=== PATIENT | female | born 1995 | race Caucasian/White ===

== ENCOUNTER 2016-12-27 22:28 | Inpatient (IN) | payer OTHER ==
--- NOTE | ~2016-12-27 | PN ---
Unit #: [id number] #: [id number] Patient: PRAFUL ANDREWS [id number] [facility] [address] [place] [address] [id number] I MR#: [id number] NAME: PRAFUL ANDREWS. ROOM: P209 Age: 21 Sex: F Admission Date: 12/27/2016 : 1995 Attending Physician: Flavio Em M.D. Admitting Physician: Flavio Em M.D. Primary Care Physician: Primary Care Physician Jackie LEMUS PROGRESS NOTES DATE OF SERVICE: 12/29/2016 DISCUSSION Ms. Praful Andrews is a 21-year-old female, seen on 12/29/2016. The patient interviewed, chart reviewed, and obtained information from nursing staff. The patient was compliant and cooperative. Mood; sad, dysphoric, and withdrawn. Flat affect, guarded. The patient tolerating medication fairly well, but still seclusive and isolative. REVIEW OF SYSTEMS Complete review of systems unremarkable. MENTAL STATUS EXAMINATION General appearance, the patient dressed casually. Attention span and concentration, fair. Oriented in place and person. Mood and affect, sad and dysphoric. Speech, monotone. Thought process, concrete. The patient denied any thoughts of harming self or others or any psychotic symptom. Recent and remote memory, poor. Insight and judgment, poor. DIAGNOSES Mood disorder, not otherwise specified; opioid use disorder, severe; and cannabis abuse disorder, moderate. ASSESSMENT AND PLAN Advised to continue with current medication and therapeutic protocol. We will monitor response to medication and make further adjustment of medication. Dictated by... Neetu Michel/evi TD: 12/29/2016 19:03 JOB #: [id number] Unit #: [id number] #: [id number] Patient: PRAFUL ANDREWS [facility] PROGRESS NOTES X Flavio Em MD PROGRESS NOTE
--- NOTE | ~2016-12-27 | HP ---
Unit #: [id number] #: [id number] Patient: PRAFUL CUMMINS [id number] [place] [address] [id number] MR#: [id number] NAME: PRAFUL CUMMINS. ROOM: P209 Age: 21 Sex: F Admission Date: 12/27/2016 : 1995 Attending Physician: Flavio Em M.D. Admitting Physician: Flavio Em M.D. Primary Care Physician: Primary Care Physician No HISTORY AND PHYSICAL HISTORY OF PRESENT ILLNESS Praful is a 21 year old admitted to [address] [place] [address] because of her IV drug use. She shoots heroin. PAST MEDICAL HISTORY Long history of opioid abuse to include IV heroin. PAST SURGICAL HISTORY Nothing reported. ALLERGIES No known drug allergies. SOCIAL HISTORY Smokes one pack per day. Denies alcohol. Admits to long history of opioid abuse to include IV heroin. FAMILY HISTORY Medically noncontributory. REVIEW OF SYSTEMS CONSTITUTIONAL: No fever or chills. HEENT: Denies any sore throat, ear pain or runny nose. CARDIOVASCULAR: Denies chest pain, irregular heart rhythm or palpitations. CHEST: Denies shortness of breath or cough. No hemoptysis. GASTROINTESTINAL: Denies nausea, vomiting, diarrhea or chronic constipation. ENDOCRINE: Denies history of increased thirst or urination. No recent significant weight loss or gain. GENITOURINARY: Denies dysuria, frequency, or hematuria. SKIN: Denies any rashes. HEMATOLOGIC: Denies history of increased bleeding or bruising. MUSCULOSKELETAL: Denies any hot, swollen joints. No generalized muscle pain. NEUROLOGIC: Denies problems with vision or speech. No frequent, severe headaches. No numbness, tingling or weakness in any extremities. Denies loss of bladder or bowel control. CURRENT MEDICATIONS 1. Detox protocol. 2. Celexa 20 mg q. day. PHYSICAL EXAMINATION Unit #: [id number] #: [id number] Patient: PRAFUL CUMMINS GENERAL: Alert, well nourished. No apparent distress. VITAL SIGNS: Blood pressure 100/60, heart rate 80, respirations 16, and temperature 98.6. WEIGHT: 144. HEIGHT: 5 feet 8 inches. SKIN: Warm and dry without rash or lesion. HEENT: Normocephalic. TMs not viewed. Oral and nasal passages clear. Conjunctivae clear. PERRLA. EOMs intact. NECK: Supple without lymphadenopathy or thyromegaly. HEART: Regular rate and rhythm without murmur. LUNGS: Clear. ABDOMEN: Soft, nontender. : Not done. EXTREMITIES: No evidence of cyanosis, clubbing or edema. Moves all without focal deficit. NEUROLOGICAL: Grossly within normal limits. Cranial Nerves: II: Visual katz are intact. III, IV AND : Extraocular movements are intact. Pupils are equal, round and reactive to light. V: Facial sensation is grossly normal. VII: Facial movements and expression are normal. VIII: Auditory acuity grossly intact. IX, X: Uvula is midline. Phonation is normal. XI: Patient shrugs shoulders and turns head normally. XII: Tongue protrudes in the midline. Sensory and Motor Function: Sensory and motor sensation is grossly normal. Motor: moves all extremities well. Coordination: Gait is normal. Deep Tendon Reflexes: Intact. IMPRESSION Psychiatric admission. RECOMMENDATIONS PSYCHIATRIC: Per psychiatrist. MEDICAL: I see no contraindication to participate in this facility's activities. MEDICAL PROGNOSIS Good. MEDICAL CONDITION Stable. Dictated by... Monica Rojas PDereckALeisa. for Neetu Sharif/albina TD: 12/29/2016 12:24 JOB #: [id number] Unit #: [id number] #: [id number] Patient: PRAFUL CUMMINS HISTORY AND PHYSICAL X Monica Rojas X HISTORY AND PHYSICAL
--- NOTE | ~2016-12-27 | PN ---
Unit #: [id number] #: [id number] Patient: PRAFUL ANDREWS [id number] [facility] [address] [place] [address] [id number] MR#: [id number] NAME: PRAFUL ANDREWS. ROOM: P209 Age: 21 Sex: F Admission Date: 12/27/2016 : 1995 Attending Physician: Flaivo Em M.D. Admitting Physician: Flavio Em M.D. Primary Care Physician: Primary Care Physician Jackie CANCHOLA NOTES DATE OF SERVICE: 12/28/2016 DISCUSSION Ms. Praful Andrews is a 21-year-old female, seen on 12/28/2009. The patient interviewed, chart reviewed, and obtained information from nursing staff. The patient continues to report feeling sad, depressed, withdrawn, flat affect. DIAGNOSTIC STUDIES LABORATORY RESULTS: The patient's urine drug screen showed positive for marijuana. REVIEW OF SYSTEMS Complete review of systems unremarkable. MENTAL STATUS EXAMINATION General appearance, the patient dressed casually. Attention span and concentration, fair. Oriented in time, place, and person. Mood and affect were sad and dysphoric. Speech, monotone. Thought process, concrete. The patient denied any thoughts of harming self or others or any psychotic symptom but sad, depressed withdrawn. Recent and remote memory, poor. Insight and judgment, poor. DIAGNOSES 1. Opioid use disorder, severe. 2. Mood disorder, not otherwise specified. 3. Cannabis abuse. ASSESSMENT AND PLAN Advised to continue with the inpatient programing and start the patient on Celexa 20 mg daily. If needed, consider further adjustment of medication. Dictated by... Neetu Michel/evi TD: 12/29/2016 06:38 JOB #: [id number] Unit #: [id number] #: [id number] Patient: PRAFUL ANDREWS [facility] PROGRESS NOTES X Flavio Em MD PROGRESS NOTE
--- NOTE | ~2016-12-27 | DS ---
Unit #: [id number] #: [id number] Patient: SALUD CUMMINS [id number] [facility] [address] [place] [address] [id number] MR#: [id number] NAME: SALUD CUMMINS. ROOM: [facility] Age: 21 Sex: F Admission Date: 12/27/2016 : 1995 Discharge Date: 12/31/2016 Attending Physician: Flavio Em M.D. Primary Care Physician: Primary Care Physician No DISCHARGE SUMMARY REASON FOR ADMISSION Detox. DIAGNOSTIC STUDIES LABORATORY RESULTS: Urine drug screen positive for marijuana. HOSPITAL COURSE The patient was admitted to inpatient unit on 12/27/2016 and discharged on 12/31/2016. The patient was treated on the inpatient unit with group therapy, individual therapy, medication management, detox protocol, and detox monitoring. The patient responded well with the above modalities of treatment and following medication. Subsequently, the patient was discharged with a plan to follow up in outpatient clinic. DISCHARGE MEDICATIONS Desyrel 100 mg at bedtime for sleep, Celexa 20 mg daily for depression, Requip 1 mg b.i.d. for restless legs syndrome. DISCHARGE DIAGNOSES Psychiatric: 1. Mood disorder, not otherwise specified, F32.9. 2. Opioid use disorder, severe, F11.20. 3. Cannabis abuse, moderate, F12.20. Secondary diagnosis: Deferred. Medical diagnosis: None. Stressors: Psychosocial stressors. DISCHARGE INSTRUCTIONS The patient to follow up in outpatient clinic as per social group worker. CONDITION ON DISCHARGE The patient was pleasant and cooperative. Denied any psychotic symptom or any suicidal ideation. PROGNOSIS Guarded. DIET AND ACTIVITY As tolerated. Unit #: [id number] #: [id number] Patient: SALUD CUMMINS Dictated by... Neetu MichelC/evi TD: 01/01/2017 08:05 JOB #: [id number] DISCHARGE SUMMARY Page 1 of 1 X Flavio Em MD X DISCHARGE SUMMARY
--- NOTE | ~2016-12-27 | A ---
[facility] Nutrition Therapy DATE: 12/28/16 Patient: SALUD CUMMINS Physician: ENID Address: [address] [place] [address] Room/Bed: [address], Zip: [place] [address] Admit Date: 12/27/16 Date of : [birth year] Height: 5 8 Weight: [phone] NUTRITIONAL ASSESSMENT: REASON: NUTRITIONAL RISK POINT - UNINTENTIONAL WEIGHT LOSS PATIENT ADMITTED FOR HEROIN DETOX, SI PMH: ASTHMA Anthropometrics: HT: 5'8", WT: 144#, BMI: 21.9, %IBW: 103 Labs: NO LABS AVAILABLE Meds: DETOX PROTOCOL Assessment: CHART REVIEWED, EVENTS NOTED. PATIENT IS A 21 Y/O FEMALE ADMITTED FOR HEROIN DETOX AND SI. PATIENT IS CURRENTLY UNEMPLOYED, SMOKES 1 PPD, HAS HAD DAILY HEROIN USE FOR LAST 3 YEARS AND DAILY MARIJUANA USE FOR LAST 7 YEARS. PATIENT STATED HER APPETITE FLUCTUATES WITH DRUG USE AND SHE'S LOST 15# OVER LAST 2-3 MONTHS. WEIGHT HX PER [employer] SHOWS A WEIGHT OF 145# 3 YEARS AGO AND A HX OF FLUCTUATIONS BETWEEN 140-160#. PATIENT HAS A HX OF INPT/OUTPT PSYCH TREATMENT. THIS RD SUSPECTS WEIGHT AND APPETITE WILL STABILIZE AND POSSIBLY INCREASE FOLLOWING DETOX. PATIENT'S BMI IS WITHIN A HEALTHY RANGE OF 19-25 AND SHE IS 103% OF HER IBW. PATIENT IS ON A REGULAR DIET, AND THERE ARE NO SKIN OR GI ISSUES NOTED ATT. Dx: INADEQUATE NUTRIENT INTAKE R/T CURRENT CONDITION, DETOX AEB SELF-REPORTED WEIGHT LOSS, NUTRITIONAL RISK POINT Intervention: 1. REGULAR DIET, 2. MEDS PER MD, 3. DETOX, 4. PSYCH Monitoring, Evaluation and Goals: 1. ADEQUATE PO INTAKES >50% OF MEALS 2. PREVENT, CORRECT MICRO/MACRO NUTRIENT DEFICIENCIES MONITOR: WEIGHTS, LABS, PO/FLUID INTAKES Recommendations: 1. CONTINUE REGULAR DIET TOLERATED 2. ENCOURAGE ADEQUATE PO AND FLUID INTAKES 3. IF PO INTAKES FALL BELOW 50% OF MEALS PLEASE ORDER ENSURE BID TO PROMOTE ADEQUTAE KCAL AND PROTEIN INTAKES [facility] Therapy DATE: 12/28/16 Patient: SALUD CUMMINS Physician: SANDRA Address: [address] [place] [address] Room/Bed: [address], Zip: [place] [address] Admit Date: 12/27/16 Date of : [birth year] Height: 5 8 Weight: [phone] TO F/U PER PROTOCOL AND PRN R/T PATIENT MILDLY COMPROMISED Respectfully, DAYDAY [facility], RD, LD [facility] cc: client file
--- NOTE | ~2016-12-27 | PA ---
Unit #: [id number] #: [id number] Patient: SALUD CUMMINS [id number] [facility] [address] [place] [address] [id number] I MR#: [id number] NAME: SALUD CUMMINS. ROOM: P209 Age: 21 Sex: F Admission Date: 12/27/2016 : 1995 Date of Assessment: 12/27/2016 Attending Physician: Flavio Em M.D. Admitting Physician: Flavio Em M.D. Primary Care Physician: Primary Care Physician No PSYCHIATRIC ASSESSMENT INFORMANTS The patient reliability, fair informant and chart reliability, good. CHIEF COMPLAINT AND HISTORY OF PRESENT ILLNESS Ms. Basilio is a 21-year-old female, seen on . The patient presented with suicidal ideation, feeling sad, and depressed. The patient has a history of previous treatment inpatient at [facility] [place] for suicidal ideation in 2011. The patient lives at home with mother and father. The patient currently unemployed. The patient presented with increase in depression and substance abuse and reported attempted to commit suicide last night by taking an overdose of 2.5 g of heroin. The patient continued to report suicidal ideation and hopelessness. The patient reported using at least 1 g of heroin daily for the last 1-1/2 to 2 years. The patient reported she has been injecting, the patient used last night. The patient's COWS score was 16, increased pulse, chills, restlessness, joint pain, runny nose and eyes, nausea, tremors, and anxiety. The patient reported smoking 1 to 2 blunts daily. The patient reported unemployed for the last few weeks. The patient reported feeling of hopelessness, worthlessness, loss of interest, low energy, decreased sleep and appetite. Denied any psychotic symptom or any homicidal ideation, but suicidal ideation. Needing inpatient admission at this time for psychiatric stabilization. PAST PSYCHIATRIC HISTORY Remarkable for history of previous treatment as mentioned above. FAMILY HISTORY AND SOCIAL HISTORY The patient lives with her parents, has a good support system. Family psychiatric illness is remarkable for history of alcohol problems in grandparents. No history of any abuse. MEDICAL HISTORY Unremarkable for any chronic medical illness. Musculoskeletal; muscle strength and tone, no atrophy or abnormal movement. Gait normal. MEDICATION HISTORY None. ALLERGIES No known drug allergies. SUBSTANCE ABUSE HISTORY The patient reported tobacco, age of onset 14; alcohol, age of onset 14; Unit #: [id number] #: [id number] Patient: SALUD CUMMINS marijuana, age of onset 14; and opioid, age of onset 16. The patient reported history of blackouts, withdrawal symptom, and IV drug use. REVIEW OF SYSTEMS HEENT: Eyes, clear. Ears, nose, mouth, and throat; clear. CARDIOVASCULAR: Unremarkable. RESPIRATORY: Unremarkable. GI: Unremarkable. : Unremarkable. SKIN: Unremarkable. LYMPH NODE: Unremarkable. NEUROLOGIC: Unremarkable. ENDOCRINE: Unremarkable. HEMATOLOGIC: Unremarkable. ALLERGIC/IMMUNOLOGIC: Unremarkable. MUSCULOSKELETAL: Muscle strength and tone, no atrophy or abnormal movement. Gait normal. MENTAL STATUS EXAMINATION CONSTITUTIONAL: Measurement of vital signs; temperature 98.2, heart rate 72, respiratory rate 17, blood pressure 90/59, height 5 feet 8 inches, and weight is 144 pounds. GENERAL APPEARANCE: The patient dressed casually. The patient did not show any facial deformity. MUSCULOSKELETAL: Please see above. PSYCHIATRIC EXAMINATION Description of speech; regular rate, normal volume, normal articulation, and coherent. Description of thought process, goal directed. Description of association, intact. Description of abnormal psychotic thinking; the patient denied any hallucinations or delusions, but mood lability and substance abuse. Description of the patient's judgment: Concerning everyday activity, poor. Social situation, poor. Concerning psychiatric condition, poor. Complete mental status examination; oriented in time, place, and person. Recent and remote memory, fair. Attention span and concentration, fair. Language, able to name object and repeat phrases. Fund of knowledge, aware of current event and passive vocabulary intact. Mood and affect, sad and dysphoric. Insight and judgment, fair to poor. ASSETS AND LIABILITIES Assets, the patient is articulate and able to take care of her ADL. Liability, history of substance abuse and depression. ADMITTING DIAGNOSES Psychiatric: Mood disorder, not otherwise specified, F32.9; opioid use disorder, severe, F11.20; and cannabis abuse, moderate, F12.20. Secondary diagnosis: Deferred. Medical diagnosis: None. Stressors: Psychosocial stressors. PSYCHIATRIC PLAN AND TREATMENT GOAL AND DISCHARGE PLAN 1. Advised to admit the patient on the inpatient unit. Provide safe, supportive, and structured environment. Unit #: [id number] #: [id number] Patient: SALUD CUMMINS 2. Ordered labs; CBC, CMP, UA, UDS, and test. The patient to start with detox protocol, detox monitoring, and SC1 precaution. If needed, consider SSRI. 3. Trazodone 75 mg q.h.s. p.r.n. for sleep. TREATMENT GOAL To attain euthymic mood, gain insight into her problem, and learn coping skills. DISCHARGE PLAN Plan to stabilize the patient and consider followup in outpatient program. ESTIMATED LENGTH OF STAY 5 days. Dictated by... Flavio Em M.D. YVONNE/evi TD: 12/28/2016 14:52 JOB #: [id number] PSYCHIATRIC ASSESSMENT X Flavio Em MD X PSYCHIATRIC ASSESSMENT
--- NOTE | ~2016-12-27 | PN ---
Unit #: [id number] #: [id number] Patient: SALUD CUMMINS [id number] [facility] [address] [place] [address] [id number] MR#: [id number] NAME: SALUD CUMMINS. ROOM: P209 Age: 21 Sex: F Admission Date: 12/27/2016 : 1995 Attending Physician: Flavio Em M.D. Admitting Physician: Flavio Em M.D. Primary Care Physician: Primary Care Physician Jackie LEMUS PROGRESS NOTES DATE OF SERVICE: 12/30/2016 DISCUSSION Ms. Ledezma is a 21-year-old female. The patient interviewed, chart reviewed, and obtained information from nursing staff. The patient reported that her sleep medication is not working, but overall feeling better. The patient was interested in getting a Vivitrol shot. The patient's complete review of systems is unremarkable. MENTAL STATUS EXAMINATION General appearance, the patient dressed casually. Attention span and concentration, fair. Oriented in place and person. Mood and affect were labile. Speech, regular rate. Thought process, goal directed. The patient denied any thoughts of harming self or others or any psychotic symptom. Recent and remote memory, poor. Insight and judgment, poor. DIAGNOSES 1. Opioid use disorder, severe. 2. Mood disorder, not otherwise specified. ASSESSMENT AND PLAN Advised to increase trazodone to 100 mg at bedtime. The patient is to be discharged next week with a plan to follow up in IOP program and consider Vivitrol injection there in the program. Dictated by... Neetu Michel/evi TD: 12/31/2016 11:42 JOB #: [id number] Unit #: [id number] #: [id number] Patient: SALUD CUMMINS [facility] PROGRESS NOTES X Flavio Em MD PROGRESS NOTE
[~2016-12-27 22:28] MED LIST: ALBUTEROL17 GM INH; ALBUTEROL17 GM NEB; ANTI-INFLAMMATORY; AUGMENTIN PO; CIPRO PO; DICLOFENAC PO; DICYCLOMINE HCL20 MG PO; HYDROCODON-ACE1 EAC7 PO; IBUPROFEN PO; LORTAB 10/500 T1 TAB PO; LORTAB 5/500 TA1 TA2 PO; MEDROL PO; MERANA; NAPROSYN500 MG PO; NO MEDICATIONS; PERIDEX480 ML PO; PHENERGAN PO; PHENERGAN25 M1 PO; TRIAMCINOLONE A15 G6; ULTRAM PO; VICODIN 5/500 T1 TAB PO; VOLTAREN50 MG PO; VOLTAREN75 MG PO; ZITHROMAX PO; ZOFRAN ODT4 MG PO; [UNRECOGNIZED DRUG - OTHER]
[2016-12-28 09:24] LABS: BASOPHIL# 0.1 X10e3 (0-0.3); BASOPHIL% 0.9 % (0-2.5); EOSINOPHIL# 0.2 X10e3 (0-0.7); EOSINOPHIL% 2.1 % (0.0-7.0); HEMATOCRIT 38.9 % (35.0-45.0); HEMOGLOBIN 12.1 gm/dL (12.0-16.0); LYMPHOCYTE# 3.4 X10e3 (1.0-3.5); LYMPHOCYTE% 40.9 % (17.0-45.0); MEAN CELL VOLUME 83.8 FL (83-96); MEAN CORPUSCULAR HEMOGLOBIN 26.1 PG (28-34); MEAN CORPUSCULAR HGB CONC 31.1 g/dL (30-36); MEAN PLATELET VOLUME 9.4 FL (6.5-11.5); MONOCYTE# 0.6 X10e3 (0-1.0); MONOCYTE% 7.7 % (3.0-12.0); NEUTROPHIL% 48.4 % (40-75); PLATELET COUNT 229 X10e3 (140-420); RED BLOOD COUNT 4.64 X10e (3.90-5.30); RED CELL DISTRIBUTION WIDTH 15.8 % (11.0-15.5); WHITE BLOOD COUNT 8.3 X10e3 (4.0-10.5)
[2016-12-28 09:35] LABS: URINE APPEARANCE CLEAR; URINE BILIRUBIN NEG (NEG); URINE BLOOD NEG (NEG); URINE COLOR YELLOW; URINE GLUCOSE NEG (NEG); URINE KETONE NEG (NEG); URINE LEUKOCYTE ESTERASE 1+ (NEG); URINE NITRATE NEG (NEG); URINE PROTEIN NEG (NEG); URINE SPECIFIC GRAVITY 1.006 (1.003-1.035); URINE UROBILINOGEN 0.2 MG/DL (NEG)
[2016-12-28 09:38] LABS: URBCS1 AUWI 0-2 /[HPF] (0-2); URINE BACTERIA AUWI NEG (NEGATIVE); URINE SQUAMOUS EPITHELIAL CELL NONE SEEN /[HPF]
[2016-12-28 09:48] LABS: THYROID STIMULATING HORMONE 1.26 uIU/ml (0.34-5.60)
[2016-12-28 09:53] LABS: DIFF IND NO
[2016-12-28 09:57] LABS: FREE THYROXIN (T4) 0.94 ng/dL (0.58-1.64)
[2016-12-28 10:15] LABS: ALBUMIN SERUM 3.6 g/dL (3.5-5.0); ALKALINE PHOSPHATASE 54 U/L (32-92); ALT (SGPT) 13 U/L (10-40); AST (SGOT) 16 U/L (10-42); BILIRUBIN,TOTAL 0.7 mg/dL (0.2-2.0); CALCIUM SERUM 9.3 mg/dL (8.4-10.2); CARBON DIOXIDE 30 mmol/L (22-31); CHLORIDE 103 mmol/L (100-111); CREATININE SERUM 0.5 mg/dL (0.6-1.4); GLOM FILT RATE Estimated ABOVE60 mL/min (>60); GLUCOSE FASTING 89 mg/dL (70-110); POTASSIUM 4.7 mmol/L (3.5-5.1); SODIUM 141 mmol/L (135-145)
[2016-12-28 10:16] LABS: BLOOD UREA NITROGEN <5 mg/dL (9-23)
[2016-12-28 10:24] LABS: AMPHETAMINE NEG (NEG); BARBITURATES NEG (NEG); BENZODIAZEPINES NEG (NEG); COCAINE NEG (NEG); MARIJUANA POS (NEG); OPIATES NEG (NEG); TRICYCLIC ANTIDEPRESSANTS NEG (NEG); U METHADONE NEG (NEG)
== END 2016-12-31 10:15 | DRG 885 ==
LOC: P2S 22:28
PROVIDERS: Psychiatry & Neurology Psychiatry
PROC: HZ2ZZZZ Detoxification Services for Substance Abuse Treatment (ICD-10-PCS; principal; 2016-12-27)
DX: F39 Unspecified mood [affective] disorder (principal); F11.20 Opioid dependence, uncomplicated; F12.20 Cannabis dependence, uncomplicated; F17.210 Nicotine dependence, cigarettes, uncomplicated
CPT/HCPCS: 80053; 80307; 81003; 84439; 84443; 84703; 85025; 86592

== ENCOUNTER 2017-07-03 13:44 | Emergency (ER) | payer OTHER ==
[2017-07-03 14:56] LABS: BASOPHIL% 0.6 % (0-2.5); EOSINOPHIL% 0.1 % (0.0-7.0); HEMATOCRIT 39.8 % (35.0-45.0); HEMOGLOBIN 13.3 gm/dL (12.0-16.0); LYMPHOCYTE# 0.9 X10e3 (1.0-3.5); LYMPHOCYTE% 14.4 % (17.0-45.0); MEAN CELL VOLUME 79.1 FL (83-96); MEAN CORPUSCULAR HEMOGLOBIN 26.5 PG (28-34); MEAN CORPUSCULAR HGB CONC 33.4 g/dL (30-36); MEAN PLATELET VOLUME 8.5 FL (6.5-11.5); MONOCYTE# 0.2 X10e3 (0-1.0); MONOCYTE% 3.8 % (3.0-12.0); NEUTROPHIL# 5.2 X10e3 (1.5-7.1); NEUTROPHIL% 81.1 % (40-75); PLATELET COUNT 270 X10e3 (140-420); RED BLOOD COUNT 5.03 X10e (3.90-5.30); RED CELL DISTRIBUTION WIDTH 16.5 % (11.0-15.5); WHITE BLOOD COUNT 6.4 X10e3 (4.0-10.5)
[2017-07-03 14:58] LABS: DIFF IND NO
[2017-07-03 15:14] LABS: ALBUMIN SERUM 4.4 g/dL (3.5-5.0); BILIRUBIN, DIRECT 0.1 mg/dL (0.0-0.2); BILIRUBIN,INDIRECT 0.5 mg/dL (0.0-0.9); BILIRUBIN,TOTAL 0.6 mg/dL (0.2-2.0); CALCIUM SERUM 9.2 mg/dL (8.4-10.2); CREATININE SERUM 0.5 mg/dL (0.6-1.4); GLOM FILT RATE Estimated 135.5 mL/min (>60); POTASSIUM 3.7 mmol/L (3.5-5.1); PROTEIN TOTAL SERUM 8.6 g/dL (6.0-8.3)
== END 2017-07-03 16:16 | disposition home or self-care (01) ==
LOC: SED 13:44
DX: O99.89 Other specified diseases and conditions complicating pregnancy, childbirth and the puerperium (principal); O21.9 Vomiting of pregnancy, unspecified; R10.9 Unspecified abdominal pain; R42 Dizziness and giddiness; Z3A.01 Less than 8 weeks gestation of pregnancy; O99.331 Smoking (tobacco) complicating pregnancy, first trimester; F17.210 Nicotine dependence, cigarettes, uncomplicated
CPT/HCPCS: 80048; 80076; 84702; 85025; 99284